=== PATIENT | female | born 1955 | race Caucasian/White ===

== ENCOUNTER 2019-03-27 08:55 | Emergency (ER) | payer MEDICAID, OTHER ==
[~2019-03-27] VITALS: Ht 160 cm; Wt 75.0 kg
[2019-03-27 09:33] LABS: URINE HCG NEGATIVE (NEG)
[2019-03-27 09:34] LABS: BASOPHILS % (AUTO) 0.7 % (0-1); EOSINOPHILS # (AUTO) 0.3 X10'3 (0-0.9); EOSINOPHILS % (AUTO) 4.8 % (0-6); HEMATOCRIT 40.4 % (35.0-45.0); HEMOGLOBIN 13.6 g/dl (12.0-16.0); LYMPHOCYTES # (AUTO) 1.1 X10'3 (1.1-4.8); MEAN CORPUSCULAR HEMOGLOBIN 31.7 PG (27.0-31.0); MEAN CORPUSCULAR HGB CONC 33.8 g/dL (33.0-36.5); MEAN CORPUSCULAR VOLUME 93.8 FL (78-98); MEAN PLATELET VOLUME 6.7 FL (7.4-10.4); MONOCYTES # (AUTO) 0.5 X10'3 (0-0.9); MONOCYTES % (AUTO) 8.4 % (2-12); NEUTROPHILS # (AUTO) 4.5 X10'3 (1.8-7.7); NEUTROPHILS % (AUTO) 69.1 % (42-75); PLATELET COUNT 478 X10'3 (140-440); RED BLOOD COUNT 4.31 X10'6 (4.20-5.60); RED CELL DISTRIBUTION WIDTH 12.9 % (11.5-14.5); WHITE BLOOD COUNT 6.5 X10'3 (4.5-11.0)
[2019-03-27 09:41] LABS: CLARITY,URINE SLIGHTLY CLOUDY (Clear); COLOR,URINE YELLOW (Yellow); GLUCOSE, URINE NEGATIVE (Neg); KETONES,URINE TRACE mg/dl (Neg); LEUKOCYTE ESTERASE ,URINE TRACE (Neg); NITRITES, URINE NEGATIVE (Neg); OCCULT BLOOD,URINE NEGATIVE (Neg); PROTEIN,URINE NEGATIVE (Neg); UA COLLECTION TYPE CLN CATCH MIDSTREAM; UROBILINOGEN,URINE 0.2 E.U/dL (0.2-1.0)
[2019-03-27 09:45] LABS: ALANINE AMINOTRANSFERASE 22 U/L (12-78); ALBUMIN 3.1 G/DL (3.4-5.0); ALBUMIN/GLOBULIN RATIO 0.7 (1.1-1.5); ALKALINE PHOSPHATASE 85 IU/L (46-116); ANION GAP 10 (8-16); ASPARTATE AMINO TRANSFERASE 8 U/L (10-37); BILIRUBIN,TOTAL 0.3 MG/DL (0.1-1.0); BLOOD UREA NITROGEN 9 MG/DL (7-18); BUN/CREATININE RATIO 9.5 (6.6-38.0); CALCIUM 8.7 MG/DL (8.5-10.1); CHLORIDE 103 MMOL/L (99-107); CREATININE 0.95 MG/DL (0.40-0.90); GLUCOSE 111 MG/DL (70-104); LIPASE 94 U/L (73-393); POTASSIUM 3.9 MMOL/L (3.5-5.1); SODIUM 138 MMOL/L (135-145); TOTAL CARBON DIOXIDE 24.6 MMOL/L (24-32); TOTAL PROTEIN 7.6 G/DL (6.4-8.2); eGFR 60 ML/MIN
[2019-03-27 09:46] LABS: MUCUS STRANDS FEW /LPF (Neg); SQUAMOUS EPITHELIAL CELL,UR MODERATE /LPF (FEW)
[2019-03-27 09:47] LABS: BACTERIA,URINE 1+ /HPF (Neg); RBC,URINE 0-2 /HPF (0-2); WBC,URINE 0-4 /HPF (0-4)
[2019-03-27] MEDS ORDERED: ketorolac tromethamine 15mg/ml inj. IV ONE (09:55)
[2019-03-27] MEDS ORDERED: ondansetron/PF 4mg/2ml inj IV ONE (10:05)
[2019-03-27] MEDS ORDERED: morphine 4 MG/ML inj SYRINge IV ONE (10:05)
--- NOTE | 2019-03-27 10:14 | NUR ---
PER PATIENT: SHE GETS ITCHY WHEN SHE TAKES MORPHINE: SUZI FREEMAN ASKED THE PATIENT AND THEN ORDERED MORPHINE. THERFORE, MORPHINE DELETED AN ALLERGY
--- NOTE | 2019-03-27 10:21 | NUR ---
back from ct scan
[2019-03-27] MEDS ORDERED: HYDR-4383 PO (12:03)
[2019-03-27] MEDS ORDERED: ONDA4TAB6 PO (12:03)
[2019-03-27 12:11] VITALS: BP 112/66
== END 2019-03-27 12:21 | disposition home or self-care (01) ==
LOC: ER 08:55
DX: K57.30 Diverticulosis of large intestine without perforation or abscess without bleeding (principal); K44.9 Diaphragmatic hernia without obstruction or gangrene; E11.9 Type 2 diabetes mellitus without complications; Z90.49 Acquired absence of other specified parts of digestive tract; Z90.710 Acquired absence of both cervix and uterus; Z79.899 Other long term (current) drug therapy
CPT/HCPCS: 36415; 74176; 80053; 81001; 81025; 83690; 85025; 85610; 87088; 96374; 96375; 99284; J1885; J2270; J2405

== ENCOUNTER 2021-03-18 17:26 | Emergency (ER) | payer MEDICAID ==
[~2021-03-18] VITALS: Ht 160 cm; Wt 78.0 kg
[~2021-03-18 17:26] MED LIST: HYDR-4383 PO; ONDA4TAB6 PO
[2021-03-18 18:24] LABS: EOSINOPHILS # (AUTO) 0.2 X10'3 (0-0.9); EOSINOPHILS % (AUTO) 3.7 % (0-6); HEMATOCRIT 41.6 % (35.0-45.0); HEMOGLOBIN 13.9 g/dl (12.0-16.0); LYMPHOCYTES # (AUTO) 1.1 X10'3 (1.1-4.8); LYMPHOCYTES % (AUTO) 22.6 % (21-51); MEAN CORPUSCULAR HEMOGLOBIN 31.3 PG (27.0-31.0); MEAN CORPUSCULAR HGB CONC 33.5 g/dL (33.0-36.5); MEAN CORPUSCULAR VOLUME 93.7 FL (78-98); MEAN PLATELET VOLUME 7.7 FL (7.4-10.4); MONOCYTES # (AUTO) 0.4 X10'3 (0-0.9); MONOCYTES % (AUTO) 8.3 % (2-12); NEUTROPHILS # (AUTO) 3.1 X10'3 (1.8-7.7); NEUTROPHILS % (AUTO) 64.4 % (42-75); PLATELET COUNT 254 X10'3 (140-440); RED BLOOD COUNT 4.44 X10'6 (4.20-5.60); RED CELL DISTRIBUTION WIDTH 13.3 % (11.5-14.5); WHITE BLOOD COUNT 4.9 X10'3 (4.5-11.0)
[2021-03-18 18:43] LABS: ALANINE AMINOTRANSFERASE 31 U/L (12-78); ALBUMIN 4.1 G/DL (3.4-5.0); ALBUMIN/GLOBULIN RATIO 1.2 (1.1-1.5); ALKALINE PHOSPHATASE 78 IU/L (46-116); ANION GAP 7 (8-16); ASPARTATE AMINO TRANSFERASE 10 U/L (10-37); BILIRUBIN,TOTAL 0.4 MG/DL (0.1-1.0); BLOOD UREA NITROGEN 13 MG/DL (7-18); BUN/CREATININE RATIO 13.1 (6.6-38.0); CALCIUM 8.9 MG/DL (8.5-10.1); CHLORIDE 102 MMOL/L (99-107); CREATININE 0.99 MG/DL (0.40-0.90); GLUCOSE 106 MG/DL (70-104); POTASSIUM 4.3 MMOL/L (3.5-5.1); SODIUM 136 MMOL/L (135-145); TOTAL CARBON DIOXIDE 26.7 MMOL/L (24-32); TOTAL PROTEIN 7.6 G/DL (6.4-8.2); eGFR 56 ML/MIN
[2021-03-18 19:49] VITALS: BP 166/94
== END 2021-03-18 19:51 | disposition home or self-care (01) ==
LOC: ER 17:28
DX: R53.83 Other fatigue (principal); K59.00 Constipation, unspecified; R11.0 Nausea; R00.2 Palpitations; R06.00 Dyspnea, unspecified; E11.9 Type 2 diabetes mellitus without complications; G89.29 Other chronic pain; Z90.49 Acquired absence of other specified parts of digestive tract; Z90.710 Acquired absence of both cervix and uterus; Z98.890 Other specified postprocedural states; Z79.899 Other long term (current) drug therapy
CPT/HCPCS: 36415; 71045; 80053; 83880; 84484; 85025; 93005; 99285

== ENCOUNTER 2022-06-22 05:22 | Emergency (ER) | payer MEDICARE, MEDICAID ==
[~2022-06-22] VITALS: Ht 160 cm; Wt 76.3 kg
[2022-06-22 05:42] VITALS: BP 154/94
== END 2022-06-22 07:28 | disposition left against medical advice (07) ==
LOC: ER 05:24
DX: F41.9 Anxiety disorder, unspecified (principal); Z53.21 Procedure and treatment not carried out due to patient leaving prior to being seen by health care provider
CPT/HCPCS: 93005

== ENCOUNTER 2023-07-07 00:51 | Emergency (ER) | payer MEDICARE, MEDICAID ==
[~2023-07-07] VITALS: Ht 160 cm; Wt 85.7 kg
[2023-07-07 02:00] LABS: BASOPHILS % (AUTO) 0.4 % (0-1); EOSINOPHILS # (AUTO) 0.2 X10'3 (0-0.9); EOSINOPHILS % (AUTO) 1.7 % (0-6); HEMATOCRIT 40.4 % (35.0-45.0); HEMOGLOBIN 13.2 g/dl (12.0-16.0); LYMPHOCYTES # (AUTO) 1.3 X10'3 (1.1-4.8); LYMPHOCYTES % (AUTO) 12.2 % (21-51); MEAN CORPUSCULAR HGB CONC 32.8 g/dL (33.0-36.5); MEAN CORPUSCULAR VOLUME 94.5 FL (78-98); MEAN PLATELET VOLUME 7.3 FL (7.4-10.4); MONOCYTES # (AUTO) 0.8 X10'3 (0-0.9); MONOCYTES % (AUTO) 7.6 % (2-12); NEUTROPHILS # (AUTO) 8.2 X10'3 (1.8-7.7); NEUTROPHILS % (AUTO) 78.1 % (42-75); PLATELET COUNT 240 X10'3 (140-440); RED BLOOD COUNT 4.28 X10'6 (4.20-5.60); RED CELL DISTRIBUTION WIDTH 13.3 % (11.5-14.5); WHITE BLOOD COUNT 10.4 X10'3 (4.5-11.0)
[2023-07-07 02:22] LABS: ALANINE AMINOTRANSFERASE 22 U/L (12-78); ALBUMIN 3.5 G/DL (3.4-5.0); ALKALINE PHOSPHATASE 82 IU/L (46-116); ANION GAP 8 (8-16); ASPARTATE AMINO TRANSFERASE 9 U/L (10-37); BILIRUBIN,TOTAL 0.7 MG/DL (0.1-1.0); BLOOD UREA NITROGEN 12 MG/DL (7-18); BUN/CREATININE RATIO 11.3 (10.0-20.0); CHLORIDE 103 MMOL/L (99-107); CREATININE 1.06 MG/DL (0.40-0.90); GLUCOSE 107 MG/DL (70-104); LIPASE 17 U/L (16-77); POTASSIUM 4.1 MMOL/L (3.5-5.1); SODIUM 137 MMOL/L (135-145); TOTAL CARBON DIOXIDE 26.5 MMOL/L (24-32); TOTAL PROTEIN 7.1 G/DL (6.4-8.2); eCRCL 43 ML/MIN; eGFR 52 ML/MIN
--- NOTE | 2023-07-07 03:08 | NUR ---
PT TO CT
[2023-07-07 04:58] VITALS: BP 129/79; PULSE 91; RESP 17; TEMP 99; O2SAT 95
[2023-07-07] MEDS ORDERED: AMOX-117 PO (05:07)
--- NOTE | 2023-07-07 05:11 | NUR ---
PT SEEN, TX AND D/C FROM LOBBY BY PROVIDER. NO RN ASSIGNED.
== END 2023-07-07 05:11 | disposition home or self-care (01) ==
LOC: ER 00:52
DX: K57.92 Diverticulitis of intestine, part unspecified, without perforation or abscess without bleeding (principal)
CPT/HCPCS: 36415; 74176; 80053; 83690; 85025; 99284

== ENCOUNTER 2024-05-13 08:52 | Day surgery (SDC) | payer MEDICARE, MEDICAID ==
[~2024-05-13] VITALS: Ht 160 cm; Wt 81.8 kg
[2024-05-13 09:14] VITALS: BP 149/87; PULSE 75; RESP 20
[2024-05-13] MEDS ORDERED: propofol inj 20 ML IV ONE (10:26)
[2024-05-13 10:47] VITALS: BP 98/62; PULSE 73; RESP 18; O2SAT 97
[2024-05-13] MEDS ORDERED: simethicone 40mg/0.6ml oral drops 30ml ONE (10:49)
[2024-05-13 10:57] VITALS: BP 116/71; PULSE 59; RESP 15; O2SAT 96
[2024-05-13 11:07] VITALS: BP 108/80; PULSE 58; RESP 12; O2SAT 98
[2024-05-13 11:17] VITALS: BP 117/72; PULSE 58; RESP 13; O2SAT 97
[2024-05-15] MEDS ORDERED: MULT-1249 PO (09:23)
[2024-05-15] MEDS ORDERED: CHOL1CAP16 PO (09:23)
== END 2024-05-13 11:27 | disposition home or self-care (01) ==
LOC: GI LAB 08:52
PROVIDERS: ATTEND Internal Medicine Gastroenterology
DX: K57.92 Diverticulitis of intestine, part unspecified, without perforation or abscess without bleeding (principal); D12.5 Benign neoplasm of sigmoid colon; K57.30 Diverticulosis of large intestine without perforation or abscess without bleeding; Z88.5 Allergy status to narcotic agent
CPT/HCPCS: 45385; A4618; A4620; C1889; J2704; J7030; Z7512

== ENCOUNTER 2024-05-20 10:19 | Day surgery (SDC) | payer MEDICARE, MEDICAID ==
[~2024-05-20] VITALS: Ht 160 cm; Wt 81.8 kg
[~2024-05-20 10:19] MED LIST changes: +CHOL1CAP16 PO; -HYDR-4383 PO; +MULT-1249 PO; -ONDA4TAB6 PO
[2024-05-20 10:44] VITALS: BP 148/77; PULSE 74; RESP 16
[2024-05-20] MEDS ORDERED: fentaNYL/PF 50MCG/1 ML 2ML syringe ONE (11:46)
[2024-05-20] MEDS ORDERED: simethicone 40mg/0.6ml oral drops 30ml ONE (11:46)
[2024-05-20] MEDS ORDERED: propofol inj 20 ML IV ONE (11:46)
[2024-05-20] MEDS ORDERED: midazolam 1 mg/ML 2ml injection ONE (11:46)
[2024-05-20 12:06] VITALS: BP 98/70; PULSE 62; RESP 14; O2SAT 99
[2024-05-20 12:16] VITALS: BP 112/72; PULSE 65; RESP 15; O2SAT 98
[2024-05-20 12:26] VITALS: BP 126/80; PULSE 67; RESP 12; O2SAT 96
[2024-05-20 12:36] VITALS: BP 109/70; PULSE 62; RESP 11; O2SAT 97
== END 2024-05-20 12:45 | disposition home or self-care (01) ==
LOC: GI LAB 10:19
PROVIDERS: ATTEND Internal Medicine Gastroenterology
DX: R12 Heartburn (principal); K21.00 Gastro-esophageal reflux disease with esophagitis, without bleeding; K29.50 Unspecified chronic gastritis without bleeding; Z98.84 Bariatric surgery status; Z88.5 Allergy status to narcotic agent
CPT/HCPCS: 43239; A4618; A4620; J2250; J2704; J3010; J7030; Z7512